=== PATIENT | female | born 1980 | race Caucasian/White ===

== ENCOUNTER 2025-03-15 21:52 | Emergency (ER) | payer BC ==
[~2025-03-15] VITALS: Ht 165.1 cm; Wt 61.0 kg
[2025-03-15 22:07] VITALS: O2SAT 99
[2025-03-15] MEDS: KETOROLAC 15MG/ML VIAL IV ONE (22:54)
[2025-03-15] MEDS: ACETAMINOPHEN 325MG TABLET PO ONE (22:54)
[2025-03-15] MEDS: SODIUM CHLORIDE 0.9% 1,000 ML IV ONE (22:55)
[2025-03-15 23:09] LABS: BASOPHILS % 0.4 % (0.0-2.0); EOSINOPHILS % 0.0 % (0.0-5.0); HEMATOCRIT. 35.2 % (36.0-48.0); HEMOGLOBIN. 12.3 g/dL (12.0-16.0); LYMPHOCYTES % 15.1 % (20.0-50.0); MEAN PLATELET VOLUME 8.3 fl (7.4-10.4); MONOCYTES % 4.1 % (2.0-8.0); NEUTROPHILS % 80.4 % (40.0-76.0); PLATELET 166 x1000/uL (130-400); RED BLOOD CELL COUNT 4.22 mill/uL (4.2-5.4); RED CELL DISTRIBUTION WIDTH 12.5 % (11.6-14.6)
[2025-03-15 23:22] LABS: CREATININE 0.9 mg/dL (0.6-1.0); UREA NITROGEN BLOOD 13 mg/dL (9-23)
[2025-03-15 23:23] LABS: ASPARTATE AMINOTRANSFERASE 349 IU/L (<34); INR 1.0; PROTEIN TOTAL 7.4 g/dL (6.0-8.3)
[2025-03-15 23:24] LABS: BILIRUBIN DIRECT 0.3 mg/dL (<=3.0); BILIRUBIN TOTAL 0.7 mg/dL (0.1-1.0); PHOSPHORUS 2.2 mg/dL (2.5-4.9)
[2025-03-15 23:32] LABS: HCG SCREEN NEGATIVE; MONOTEST NEGATIVE (NEGATIVE)
[2025-03-16 00:02] LABS: CLARITY URINE CLOUDY (CLEAR); COLOR URINE DARK YELLOW (YELLOW); GLUCOSE URINE NEGATIVE (NEGATIVE); KETONES URINE 3+ (NEGATIVE); LEUKOCYTE ESTERASE URINE 1+ (NEGATIVE); NITRITE URINE POSITIVE (NEGATIVE); OCCULT BLOOD URINE TRACE (NEGATIVE); PH URINE 6.0 (4.5-8.0); PROTEIN URINE 2+ (NEGATIVE); SPECIFIC GRAVITY URINE 1.023 (1.005-1.030); UROBILINOGEN URINE 2.0 E.U./dL (0.2-1.0)
[2025-03-16 00:07] LABS: ETHANOL BLOOD < 10 mg/dL (<10)
[2025-03-16] MEDS: CEFTRIAXONE 1GM/50ML 50 ML IV ONE (00:29)
[2025-03-16] MEDS: SODIUM CHLORIDE 0.9% 1,000 ML IV ONE (00:29)
[2025-03-16] MEDS: POTASSIUM CHLORIDE 20MEQ TABLET SR PO ONE (00:30)
[2025-03-16] MEDS: POTASSIUM-SODIUM PHOSPHATE POWDER PACKET PO ONE (00:52)
[2025-03-16 00:55] LABS: BACTERIA URINE 4+; SQUAMOUS EPITHELIAL CELL URINE FEW /lpf (RARE/1+)
[2025-03-16] MEDS ORDERED: CEPH500T MT (01:38)
[2025-03-16] MEDS ORDERED: IBUP-2028 MT (01:39)
[2025-03-16] MEDS ORDERED: TOPUD PO (01:39)
[2025-03-16 02:01] LABS: INFLUENZA TYPE A Presumptive Negative (Pres. Neg.)
[2025-03-16 02:02] LABS: INFLUENZA TYPE B Presumptive Negative (Pres. Neg.)
[2025-03-16 02:03] LABS: RESPIRATORY SYNCYTIAL VIRUS Not Detected (Not Detectd)
[2025-03-16 02:06] LABS: HEPATITIS A AB IGM NEGATIVE (Negative); HEPATITIS B CORE AB IGM NEGATIVE (Negative)
[2025-03-16 02:15] VITALS: BP 106/58; PULSE 86; RESP 20; TEMP 36.9; O2SAT 98
[2025-03-16 02:15] LABS: HEPATITIS C AB NON REACTIVE (Neg) (Negative)
== END 2025-03-16 02:20 | disposition left against medical advice (07) ==
LOC: ER 21:52 → CMPBEDREQ 03-16 07:58
DX: N39.0 Urinary tract infection, site not specified (principal); E87.6 Hypokalemia; E87.1 Hypo-osmolality and hyponatremia; E83.39 Other disorders of phosphorus metabolism; Z79.899 Other long term (current) drug therapy; Z98.890 Other specified postprocedural states; Z20.822 Contact with and (suspected) exposure to COVID-19
CPT/HCPCS: 80076; 80048; 81003; 80307; 80329; 80320; 82550; 84703; 83690; 83735; 84100; 85025; 85610; 86308; 87340; 87420; 87086; 87186 ×2; 87804 ×2; 87077; 36415 ×2; 86705; 86709; 76705; 96361 ×2; 96375; 99291; 87426; 83605; 87040; 84145; 96365; J1885; J7030 ×2; Z7610; J0696; G0480